=== PATIENT | female | born 1980 ===

== ENCOUNTER 2017-09-30 01:47 | Emergency (ER) | payer SELFPAY ==
[2017-09-30] MEDS ORDERED: NALOXONE 2 MG SYG (07:00)
[2017-09-30] MEDS ORDERED: NA BICARBONATE 8.4% 50 ML SYG (07:00)
[2017-09-30] MEDS ORDERED: DEXTROSE 50% 50 ML SYRINGE (07:00)
[2017-09-30] MEDS ORDERED: EPINEPHrine 0.1 MG/ML SYG (07:00)
== END 2017-09-30 05:10 | disposition expired ==
LOC: E/R 01:47
DX: I46.9 Cardiac arrest, cause unspecified (principal)
CPT/HCPCS: 31500; 92950; 99291-25